=== PATIENT | male | born 1950 | race Caucasian/White ===

== ENCOUNTER 2021-11-07 08:03 | Day surgery (SDC) | payer MEDICARE ==
[~2021-11-07] VITALS: Ht 180.3 cm; Wt 52.0 kg
[~2021-11-07 08:03] MED LIST: ALBU18HF2 INH; AMLO10TA4 PO; BECL7.3A7 INH; CLON-529 PO; DILT120C62 PO; HYDR12.5 PO; METO50TA7 PO; PRED1TAB PO; TIOT4MIS3 IH
[2021-11-07 08:15] VITALS: BP 144/82
[2021-11-07] MEDS ORDERED: SIMV40TA PO (08:20)
[2021-11-07] MEDS ORDERED: METO100T7 PO (08:22)
[2021-11-07] MEDS ORDERED: ASPI-10 PO (08:23)
[2021-11-07] MEDS ORDERED: BUDE10.7 INH (08:28)
[2021-11-07] MEDS ORDERED: PRED5TAB49 PO (08:30)
[2021-11-07] MEDS ORDERED: MIDAZolam 1 MG/ML 5ML VIAL ONE (08:45)
[2021-11-07] MEDS ORDERED: fentaNYL/PF 50MCG/1 ML 2ML syringe ONE (08:45)
[2021-11-07 09:41] VITALS: BP 119/70
[2021-11-07 09:51] VITALS: BP 109/65
[2021-11-07 10:01] VITALS: BP 124/65
== END 2021-11-07 10:20 | disposition home or self-care (01) ==
LOC: GI LAB 08:03
PROVIDERS: ATTEND Internal Medicine Gastroenterology
DX: R19.5 Other fecal abnormalities (principal); K63.5 Polyp of colon; K64.8 Other hemorrhoids; K57.30 Diverticulosis of large intestine without perforation or abscess without bleeding; I10 Essential (primary) hypertension; J44.9 Chronic obstructive pulmonary disease, unspecified; Z99.81 Dependence on supplemental oxygen; Z79.899 Other long term (current) drug therapy
CPT/HCPCS: 45385; 88305; C1773; G0500; J2250; J3010; J7040; Z7512; 99152; 99153; A4620

== ENCOUNTER → 2024-03-28 | Outpatient (CLI) | payer MEDICARE ==
[~2024-03-28] MED LIST changes: +ASPI-10 PO; -BECL7.3A7 INH; +BUDE10.7 INH; -DILT120C62 PO; -HYDR12.5 PO; +METO100T7 PO; -METO50TA7 PO; -PRED1TAB PO; +PRED5TAB49 PO; +SIMV-343 PO; -TIOT4MIS3 IH
== END | disposition home or self-care (01) ==
LOC: RAD 16:05
PROVIDERS: ATTEND Physician Assistant
DX: J44.9 Chronic obstructive pulmonary disease, unspecified (principal); I70.0 Atherosclerosis of aorta
CPT/HCPCS: 71046